=== PATIENT | female | born 1995 | race Caucasian/White ===

== ENCOUNTER 2020-06-01 09:43 | Emergency (ER) | payer BC, OTHER ==
[~2020-06-01] VITALS: Ht 162.6 cm; Wt 75.3 kg
[2020-06-01] MEDS ORDERED: DEXAMETHASONE 4 MG TABLET ONE (10:23)
[2020-06-01] MEDS ORDERED: DEXAMETHASONE 1 MG TABLET PO ONE (10:30)
--- NOTE | 2020-06-01 10:56 | NUR ---
RECEIVD REPORT FROM JANINE PIZANO. ASSUMING CARE AT THIS TIME.
[2020-06-01 11:19] LABS: BASOPHILS % (AUTO) 0 % (0-1); EOSINOPHILS % (AUTO) 1 % (1-7); LYMPHOCYTES % (AUTO) 49 % (22-44); MEAN CORPUSCULAR HEMOGLOBIN 28.5 pg (27.0-34.8); MEAN CORPUSCULAR HGB CONC 34.1 g/dL (32.4-35.8); MEAN PLATELET VOLUME 7.4 fL (7.4-10.4); MONOCYTES % (AUTO) 9 % (2-9); NEUTROPHILS % (AUTO) 40 % (42-75); PLATELET COUNT 190 x10^3/uL (130-400); RED CELL DISTRIBUTION WIDTH 12.2 % (9.6-15.2)
[2020-06-01 11:26] LABS: MD NO
--- NOTE | 2020-06-01 12:13 | NUR ---
ALL RESULTS ARE BACK AT THIS TIME. CHART UP FOR RECHECK.
[2020-06-01 12:14] VITALS: BP 130/77
== END 2020-06-01 13:03 | disposition home or self-care (01) ==
LOC: ED 11:20
DX: B27.90 Infectious mononucleosis, unspecified without complication (principal); J02.9 Acute pharyngitis, unspecified
CPT/HCPCS: 36415; 85025; 86308; 87081; 87880; 99283